=== PATIENT | female | born 1995 | race Hispanic/Latino ===

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

== ENCOUNTER → 2017-01-03 | Outpatient (CLI) | payer OTHER ==
--- NOTE | 2017-01-03 15:16 | REP ---
ULTRASOUND RIGHT BREAST: Real-time sonographic evaluation of the right breast performed in the region of a palpable abnormality at 9-o'clock position. There is a superficial oval hypoechoic area measuring 9 x 6 x 9 mm. This is adjacent to the nipple. It is very superficial and appears to represent a sebaceous cyst. There are adjacent dilated ducts. IMPRESSION: ACR 2 benign. Superficial oval hypoechoic nodule just beneath the skin at the 9-o'clock position of the right breast near the nipple. Maximum diameter is 9 mm. This appears to represent a sebaceous cyst. Signed by Amadeo Cevallos MD 01/04/2017 04:29 P
== END ==
LOC: M RAD 14:36
PROVIDERS: ATTEND Nurse Practitioner Family
DX: N63.10 Unspecified lump in the right breast, unspecified quadrant (principal)

== ENCOUNTER 2017-02-03 23:46 | Emergency (ER) | payer OTHER ==
[~2017-02-03] VITALS: Ht 162.6 cm; Wt 61.8 kg
[2017-02-03 23:51] VITALS: BP 133/88
--- NOTE | 2017-02-04 01:10 | REPUSA ---
CLINICAL HISTORY: Trauma. TECHNIQUE: Multiple axial CT images were obtained through the cervical spine without IV contrast mate rial. COMMENTS: There is no fracture visualized. The paraspinal soft tissues are unremarkable. There are no lytic or blastic lesions. IMPRESSION: No acute pathology. Thank you for your kind referral of this patient.
== END 2017-02-04 01:43 | disposition home or self-care (01) ==
LOC: EDBD 23:46 → EDSEX 23:46 → M ED 23:46
DX: S00.93XA Contusion of unspecified part of head, initial encounter (principal); S40.021A Contusion of right upper arm, initial encounter; S40.022A Contusion of left upper arm, initial encounter; Y04.8XXA Assault by other bodily force, initial encounter; Y92.098 Other place in other non-institutional residence as the place of occurrence of the external cause; Y93.89 Activity, other specified; Y99.8 Other external cause status

== ENCOUNTER 2017-04-24 19:14 | Emergency (ER) | payer OTHER | END 2017-04-24 20:19 | disposition left against medical advice (07) | LOC: M ED 19:14 | DX: Z53.29 Procedure and treatment not carried out because of patient's decision for other reasons (principal) ==